=== PATIENT | female | born 1960 | race Caucasian/White ===

== ENCOUNTER → 2024-05-30 10:12 | Day surgery (SDC) | payer MEDICARE, OTHER, SELFPAY ==
[2024-05-30 11:58] LABS: Hematocrit 39.8 % (37.0-47.0); Hemoglobin 13.7 g/dL (12.0-16.0); Mean Corp Hgb Conc. 34.4 g/dL (33.0-37.0); Mean Corpuscular Hgb 30.4 pg (27.0-31.0); Mean Corpuscular Volume 88.4 fL (81.0-99.0); Mean Platelet Volume 9.5 fL (7.4-10.4); Platelet Count 222 10^3/uL (130-400); Red Cell Dist. Width 12.7 % (11.5-14.5)
[2024-05-30 12:15] LABS: Blood Urea Nitrogen 24 mg/dl (7-17); Calcium 9.7 mg/dl (8.4-10.2); Carbon Dioxide 29 mmol/L (22-30); Chloride 101 mmol/L (98-107); Glucose 98 mg/dl (70-99); Potassium 3.9 mmol/L (3.5-5.1); Sodium 142 mmol/L (135-145); eGFR > 60.00
== END ==
LOC: SDSPAT 10:12
PROVIDERS: ATTENDING PHYSICIAN Student in an Organized Health Care Education/Training Program; FAMILY PHYSICIAN Student in an Organized Health Care Education/Training Program
DX: Z01.810 Encounter for preprocedural cardiovascular examination (principal); Z01.812 Encounter for preprocedural laboratory examination
CPT/HCPCS: 93005; 36415; 80048; 85027

== ENCOUNTER 2024-06-01 06:14 | Day surgery (SDC) | payer MEDICARE, OTHER, SELFPAY ==
[2024-05-30 10:38] VITALS: BMI 23.6
[2024-06-01] VITALS (11 sets, daily range): BP systolic 125–148; BP diastolic 72–122; BMI 23.6
[2024-06-01] MEDS: DILAUDID 0.5 MG IV ×2 (08:38→08:51)
[2024-06-01] MEDS: DILAUDID 0.25 MG IV (09:13)
--- NOTE | 2024-06-01 12:05 | W.PN.ORTHO ---
Today's Communication / Plan
-
D/C to home
Assessment
.
Distal Motor Intact: Yes
Dressing:
Clean, dry and intact.
Plan
.
Activity:
Out of bed.
PT/OT
Subjective
.
.:
OP report dictation # [id number]
Vital Signs and Labs
.
Vital Signs and Labs:
Temp Pulse Resp BP Pulse Ox
97.4 F 90 18 136/89 96
06/01/24 09:21 06/01/24 10:00 06/01/24 10:00 06/01/24 10:00 06/01/24 10:00
== END 2024-06-01 11:00 | disposition home or self-care (01) ==
LOC: SDS 06:14
PROVIDERS: ATTENDING PHYSICIAN Student in an Organized Health Care Education/Training Program
DX: S83.251A Bucket-handle tear of lateral meniscus, current injury, right knee, initial encounter (principal); X50.1XXA Overexertion from prolonged static or awkward postures, initial encounter
CPT/HCPCS: 29882

== ENCOUNTER → 2025-01-24 08:55 | Outpatient (REF) | payer MEDICARE, OTHER, SELFPAY | LOC: WDC 08:55 | PROVIDERS: ATTENDING PHYSICIAN Obstetrics & Gynecology; FAMILY PHYSICIAN Student in an Organized Health Care Education/Training Program | DX: R22.2 Localized swelling, mass and lump, trunk (principal); N63.22 Unspecified lump in the left breast, upper inner quadrant | CPT/HCPCS: 76642 ==